=== PATIENT | male | born 1985 | race Two or more races ===

== ENCOUNTER 2021-05-01 09:26 | Inpatient (IN) | payer OTHER ==
[~2021-05-01] VITALS: Ht 200.7 cm; Wt 87.0 kg
[2021-05-01] MEDS ORDERED: DiphenhydrAMINE HCL 50 MG/ML VIAL IM ONE (10:45)
[2021-05-01] MEDS ORDERED: LORazepam 2 MG/ML VIAL IM ONE (10:45)
[2021-05-01] MEDS ORDERED: HALOPERIDOL LACTATE 5 MG/ML VIAL IM ONE (10:45)
[2021-05-01 12:28] LABS: BASOPHILS % (AUTO) 0.7 % (0.0-2.0); EOSINOPHILS % (AUTO) 1.3 % (1.0-6.0); HEMATOCRIT 39.6 % (41-53); HEMOGLOBIN 13.1 g/dL (13.5-17.5); LYMPHOCYTES # (AUTO) 0.8 K/uL (1.0-4.8); LYMPHOCYTES % (AUTO) 7.8 % (22.0-44.0); MEAN CORPUSCULAR HEMOGLOBIN 27.9 pg (26.0-34.0); MEAN CORPUSCULAR VOLUME 84 fL (80-100); MONOCYTES # (AUTO) 0.7 K/uL (0.1-1.0); NEUTROPHILS # (AUTO) 8.1 K/uL (1.8-7.7); NEUTROPHILS % (AUTO) 83.2 % (40.0-70.0); PLATELET COUNT (AUTO) 235 K/uL (150-450); RED BLOOD CELL COUNT(AUTO) 4.69 MIL/uL (4.50-5.90); RED CELL DISTRIBUTION WIDTH 14.2 % (11.5-14.5)
[2021-05-01 12:37] LABS: ANION GAP 8 mmol/L (8-16); CALCIUM, TOTAL 8.3 mg/dL (8.8-10.5); CARBON DIOXIDE 26 mmol/L (22-29); CHLORIDE 106 mmol/L (98-107); CREATININE 0.86 mg/dL (0.60-1.30); GLOMERULAR FILTR. RATE CALC > 60 mL/min (>60); GLUCOSE,RANDOM 89 mg/dL (70-110); POTASSIUM 3.6 mmol/L (3.5-5.1); SODIUM SERUM 140 mmol/L (136-145); UREA NITROGEN, BLOOD 17 mg/dL (7-18)
[2021-05-01 12:43] LABS: ALANINE AMINOTRANSFERASE 131 U/L (12-78); ALBUMIN 3.5 g/dL (3.4-5.0); ALKALINE PHOSPHATASE 63 U/L (46-116); ASPARTATE AMINOTRANSFERASE 105 U/L (15-37); BILIRUBIN,TOTAL 1.3 mg/dL (0.1-1.0); TOTAL PROTEIN, SERUM 6.7 g/dL (6.4-8.2)
[2021-05-01] MEDS ORDERED: ONDANSETRON HCL 4 MG/2 ML VIAL IVP PRN (14:00)
[2021-05-01] MEDS ORDERED: ACETAMINOPHEN 325 MG TABLET PO PRN (14:00)
[2021-05-01] MEDS ORDERED: 0.9% SODIUM CHLORIDE 10 ML SYRINGE IVP PRN (14:00)
[2021-05-01 14:48] LABS: COVID AG,FIA SOURCE NASOPHARYNGEAL
[2021-05-01 16:47] VITALS: BP 113/54
[2021-05-01] MEDS ORDERED: IBUPROFEN 400 MG TABLET PO PRN (17:00)
[2021-05-01] MEDS ORDERED: DOCUSATE SODIUM 100 MG CAPSULE PO PRN (17:00)
[2021-05-01] MEDS ORDERED: MAG HYDROX/AL HYDROX/SIMETH ES 30 ML SUSPENSION UDCUP PO PRN (17:00)
[2021-05-01] MEDS ORDERED: CloNIDine HCL 0.1 MG TABLET PO PRN (17:00)
[2021-05-01] MEDS ORDERED: ONDANSETRON HCL 4 MG TABLET PO PRN (17:00)
[2021-05-01] MEDS ORDERED: PETROLATUM,WHITE 28 GM JELLY TP PRN (17:00)
[2021-05-01] MEDS ORDERED: LOPERAMIDE HCL 2 MG CAPSULE PO PRN (17:00)
[2021-05-01] MEDS ORDERED: MAGNESIUM HYDROXIDE SUSPENSION 30 ML UDCUP PO PRN (17:00)
[2021-05-01] MEDS ORDERED: NICOTINE 14 MG/24 HOUR PATCH TD PRN (17:00)
[2021-05-01] MEDS ORDERED: GuaiFENesin/D-METHORPHAN [SUGAR-FREE] 200-20MG/10 ML SYRUP UDCUP PO PRN (17:00)
[2021-05-01] MEDS ORDERED: ALBUTEROL SULFATE HFA 90 MCG/PUFF 8 GM INHALER IH PRN (17:00)
[2021-05-01 20:56] VITALS: BP 124/70
[2021-05-02 01:16] LABS: AMPHET/METH SCREEN,URINE POSITIVE (NEGATIVE); BARBITURATE SCREEN, URINE NEGATIVE (NEGATIVE); BENZODIAZEPINES SCREEN,URINE NEGATIVE (NEGATIVE); CANNABINOID SCREEN,URINE NEGATIVE (NEGATIVE); COCAINE SCREEN,URINE NEGATIVE (NEGATIVE); METHADONE SCREEN, URINE NEGATIVE (NEGATIVE); OPIATE SCREEN,URINE NEGATIVE (NEGATIVE)
[2021-05-02 01:19] LABS: PHENCYCLIDINE SCREEN,URINE NEGATIVE (NEGATIVE)
[2021-05-02 05:08] VITALS: BP 121/76
[2021-05-02 08:00] VITALS: BP 111/67
[2021-05-02] MEDS ORDERED: TraZODone HCL 100 MG TABLET PO PRN (16:45)
[2021-05-02] MEDS: RisperiDONE 2 MG TABLET PO SCH (20:28)
[2021-05-02 20:49] VITALS: BP 116/72
[2021-05-03 05:30] VITALS: BP 113/88
[2021-05-03 07:29] VITALS: BP 122/70
[2021-05-03] MEDS: RisperiDONE 2 MG TABLET PO SCH (08:22)
[2021-05-03] MEDS: ChlorproMAZINE HCL 50 MG TABLET PO PRN ×2 (08:22→18:01)
[2021-05-03] MEDS: TraMADol HCL 50 MG TABLET PO PRN ×2 (12:52→18:05)
[2021-05-03 19:15] VITALS: BP 125/75
[2021-05-03] MEDS: RisperiDONE 4 MG TABLET PO SCH (19:43)
[2021-05-03] MEDS ORDERED: HYPROMELLOSE 0.5% 15 ML OPHTHALMIC SOLUTION OU PRN (23:00)
[2021-05-04 05:18] VITALS: BP 109/70
[2021-05-04] MEDS: RisperiDONE 2 MG TABLET PO SCH (08:01)
[2021-05-04 08:02] VITALS: BP 112/65
[2021-05-04] MEDS ORDERED: IBUPROFEN 400 MG TABLET PO PRN (17:00)
[2021-05-04 19:35] VITALS: BP 127/75
[2021-05-04] MEDS: RisperiDONE 4 MG TABLET PO SCH (20:04)
[2021-05-04] MEDS: ACETAMINOPHEN 325 MG TABLET PO PRN (20:09)
[2021-05-05 04:35] VITALS: BP 122/73
[2021-05-05 06:22] LABS: BASOPHILS % (AUTO) 0.8 % (0.0-2.0); HEMATOCRIT 37.4 % (41-53); HEMOGLOBIN 12.3 g/dL (13.5-17.5); LYMPHOCYTES # (AUTO) 1.5 K/uL (1.0-4.8); LYMPHOCYTES % (AUTO) 32.2 % (22.0-44.0); MEAN CORPUSCULAR HEMOGLOBIN 27.7 pg (26.0-34.0); MEAN CORPUSCULAR VOLUME 84 fL (80-100); MONOCYTES # (AUTO) 0.4 K/uL (0.1-1.0); MONOCYTES % (AUTO) 9.2 % (2.0-9.0); NEUTROPHILS # (AUTO) 2.5 K/uL (1.8-7.7); NEUTROPHILS % (AUTO) 52.8 % (40.0-70.0); PLATELET COUNT (AUTO) 230 K/uL (150-450); RED BLOOD CELL COUNT(AUTO) 4.45 MIL/uL (4.50-5.90); RED CELL DISTRIBUTION WIDTH 14.1 % (11.5-14.5)
[2021-05-05 06:37] LABS: ALANINE AMINOTRANSFERASE 63 U/L (12-78); ALKALINE PHOSPHATASE 58 U/L (46-116); ANION GAP 7 mmol/L (8-16); ASPARTATE AMINOTRANSFERASE 30 U/L (15-37); BILIRUBIN,TOTAL 0.4 mg/dL (0.1-1.0); CALCIUM, TOTAL 8.3 mg/dL (8.8-10.5); CARBON DIOXIDE 27 mmol/L (22-29); CHLORIDE 104 mmol/L (98-107); CREATININE 0.94 mg/dL (0.60-1.30); GLOMERULAR FILTR. RATE CALC > 60 mL/min (>60); GLUCOSE,RANDOM 96 mg/dL (70-110); POTASSIUM 3.9 mmol/L (3.5-5.1); SODIUM SERUM 138 mmol/L (136-145); TOTAL PROTEIN, SERUM 6.1 g/dL (6.4-8.2); UREA NITROGEN, BLOOD 14 mg/dL (7-18)
[2021-05-05] MEDS: RisperiDONE 2 MG TABLET PO SCH (08:37)
[2021-05-05 08:40] VITALS: BP 102/66
[2021-05-05 19:41] VITALS: BP 120/71
[2021-05-05] MEDS: ACETAMINOPHEN 325 MG TABLET PO PRN (20:05)
[2021-05-05] MEDS: RisperiDONE 4 MG TABLET PO SCH (20:05)
[2021-05-06 04:56] VITALS: BP 109/71
[2021-05-06 07:55] VITALS: BP 119/80
[2021-05-06] MEDS: RisperiDONE 2 MG TABLET PO SCH (08:50)
[2021-05-06 20:17] VITALS: BP 136/73
[2021-05-06] MEDS: RisperiDONE 4 MG TABLET PO SCH (20:24)
[2021-05-06] MEDS: ACETAMINOPHEN 325 MG TABLET PO PRN (20:26)
[2021-05-07 05:13] VITALS: BP 121/71
[2021-05-07 08:34] VITALS: BP 103/59
[2021-05-07] MEDS: RisperiDONE 2 MG TABLET PO SCH (09:23)
[2021-05-07] MEDS ORDERED: RISP4TAB73 PO (13:02)
[2021-05-07] MEDS ORDERED: RISP2TAB45 PO (13:02)
== END 2021-05-07 16:40 | DRG 885 ==
LOC: EMS 09:32 → EDBD 09:32 → 6S 15:55
PROVIDERS: ADMIT Internal Medicine; ATTEND Internal Medicine
DX: F29 Unspecified psychosis not due to a substance or known physiological condition (principal); D64.9 Anemia, unspecified; Z20.822 Contact with and (suspected) exposure to COVID-19; F15.10 Other stimulant abuse, uncomplicated
CPT/HCPCS: 73218; 80053; 80307; 85025; 99285; G0480; J1200; J1630; J2060

== ENCOUNTER 2021-05-22 16:50 | Emergency (ER) | payer OTHER ==
[~2021-05-22] VITALS: Ht 175.3 cm; Wt 88.6 kg
[~2021-05-22 16:50] MED LIST: RISP2TAB45 PO; RISP4TAB73 PO
[2021-05-22] MEDS ORDERED: PROPARACAINE HCL 0.5% 15 ML OPHTHALMIC SOLUTION OS ONE (17:00)
[2021-05-22] MEDS ORDERED: FLUORESCEIN SODIUM 1 MG STRIP ONE (17:06)
[2021-05-22] MEDS ORDERED: HYDROCODONE/ACETAMINOPHEN 5-325 MG TABLET PO ONE (18:15)
[2021-05-22 19:09] LABS: COVID AG,FIA SOURCE NASOPHARYNGEAL
[2021-05-22 20:00] VITALS: BP 132/76
== END 2021-05-22 20:40 | disposition short-term general hospital (02) ==
LOC: EMS 16:50
DX: S05.8X2A Other injuries of left eye and orbit, initial encounter (principal); H54.62 Unqualified visual loss, left eye, normal vision right eye; Z20.822 Contact with and (suspected) exposure to COVID-19; Z79.899 Other long term (current) drug therapy; Y04.0XXA Assault by unarmed brawl or fight, initial encounter; Y93.89 Activity, other specified; Y92.148 Other place in prison as the place of occurrence of the external cause; Y99.8 Other external cause status
CPT/HCPCS: 70450; 70486; 99285

== ENCOUNTER 2023-01-29 19:25 | Inpatient (IN) | payer OTHER ==
[~2023-01-29] VITALS: Ht 177.8 cm; Wt 91.0 kg
[2023-01-29 22:41] LABS: BASOPHILS % (AUTO) 0.7 % (0.0-2.0); EOSINOPHILS % (AUTO) 2.4 % (1.0-6.0); HEMATOCRIT 43.6 % (41-53); HEMOGLOBIN 14.5 g/dL (13.5-17.5); LYMPHOCYTES # (AUTO) 2.3 K/uL (1.0-4.8); LYMPHOCYTES % (AUTO) 33.3 % (22.0-44.0); MEAN CORPUSCULAR HEMOGLOBIN 27.9 pg (26.0-34.0); MEAN CORPUSCULAR HGB CONC 33.3 G/dL (31.0-37.0); MEAN CORPUSCULAR VOLUME 84 fL (80-100); MONOCYTES # (AUTO) 0.5 K/uL (0.1-1.0); MONOCYTES % (AUTO) 7.6 % (2.0-9.0); NEUTROPHILS # (AUTO) 3.9 K/uL (1.8-7.7); PLATELET COUNT (AUTO) 218 K/uL (150-450); RED CELL DISTRIBUTION WIDTH 14.5 % (11.5-14.5)
[2023-01-29 22:44] LABS: COVID AG,FIA SOURCE NASOPHARYNGEAL
[2023-01-29 22:49] LABS: ANION GAP 9 mmol/L (8-16); CALCIUM, TOTAL 8.8 mg/dL (8.8-10.5); CARBON DIOXIDE 28 mmol/L (22-29); CHLORIDE 105 mmol/L (98-107); GLOMERULAR FILTR. RATE CALC > 60 mL/min (>60); GLUCOSE,RANDOM 96 mg/dL (70-110); POTASSIUM 3.9 mmol/L (3.5-5.1); SODIUM SERUM 142 mmol/L (136-145); UREA NITROGEN, BLOOD 18 mg/dL (7-18)
[2023-01-29 22:55] LABS: ALANINE AMINOTRANSFERASE 29 U/L (12-78); ALBUMIN 4.2 g/dL (3.4-5.0); ALKALINE PHOSPHATASE 66 U/L (46-116); ASPARTATE AMINOTRANSFERASE 21 U/L (15-37); BILIRUBIN,TOTAL 1.1 mg/dL (0.1-1.0); TOTAL PROTEIN, SERUM 7.9 g/dL (6.4-8.2)
[2023-01-29] MEDS ORDERED: OLANZapine 5 MG TABLET PO ONE (23:00)
[2023-01-29] MEDS ORDERED: PERTUSS(ACELL),DIPH,TET VAC/PF 0.5 ML SYRINGE IM. ONE (23:00)
[2023-01-29 23:45] LABS: AMPHET/METH SCREEN,URINE NEGATIVE (NEGATIVE); BARBITURATE SCREEN, URINE NEGATIVE (NEGATIVE); BENZODIAZEPINES SCREEN,URINE NEGATIVE (NEGATIVE); CANNABINOID SCREEN,URINE NEGATIVE (NEGATIVE); COCAINE SCREEN,URINE NEGATIVE (NEGATIVE); METHADONE SCREEN, URINE NEGATIVE (NEGATIVE); OPIATE SCREEN,URINE NEGATIVE (NEGATIVE); PHENCYCLIDINE SCREEN,URINE NEGATIVE (NEGATIVE)
[2023-01-30] MEDS ORDERED: ACETAMINOPHEN 325 MG TABLET PO PRN (05:30)
[2023-01-30] MEDS ORDERED: ONDANSETRON HCL 4 MG/2 ML VIAL IVP PRN (05:30)
[2023-01-30] MEDS: HEPARIN SODIUM,PORCINE 5,000 UNITS/ML VIAL SQ SCH ×3 (09:12→23:06)
[2023-01-30 20:20] VITALS: BP 107/62
[2023-01-30] MEDS: ZOLPIDEM TARTRATE 5 MG TABLET PO PRN (23:06)
[2023-01-31 05:03] VITALS: BP_SYST 103; BP_SYST 116; BP_DIAS 63; BP_DIAS 78
[2023-01-31] MEDS: HEPARIN SODIUM,PORCINE 5,000 UNITS/ML VIAL SQ SCH ×2 (08:00→15:22)
[2023-01-31 08:38] VITALS: BP 120/70
[2023-01-31] MEDS: OLANZapine 5 MG RAPDIS TABLET PO SCH ×3 (12:30→20:28)
[2023-01-31 20:07] VITALS: BP 105/71
[2023-02-01 07:33] VITALS: BP 108/72
[2023-02-01] MEDS: OLANZapine 5 MG RAPDIS TABLET PO SCH ×2 (08:19→20:43)
[2023-02-01] MEDS: HEPARIN SODIUM,PORCINE 5,000 UNITS/ML VIAL SQ SCH ×4 (08:20→23:23)
[2023-02-01 16:39] VITALS: BP 110/74
[2023-02-01 19:45] VITALS: BP 116/66
[2023-02-01] MEDS: MIRTAZAPINE 15 MG TABLET PO SCH (20:43)
[2023-02-02 04:15] VITALS: BP 107/60
[2023-02-02] MEDS: OLANZapine 5 MG RAPDIS TABLET PO SCH ×2 (08:00→20:17)
[2023-02-02] MEDS: HEPARIN SODIUM,PORCINE 5,000 UNITS/ML VIAL SQ SCH ×3 (08:01→23:24)
[2023-02-02 08:17] VITALS: BP 110/64
[2023-02-02] MEDS: ZOLPIDEM TARTRATE 5 MG TABLET PO PRN (20:17)
[2023-02-02] MEDS: MIRTAZAPINE 15 MG TABLET PO SCH (20:17)
[2023-02-02 20:20] VITALS: BP 109/69
[2023-02-03 04:16] VITALS: BP 115/69
[2023-02-03 08:22] VITALS: BP 108/70
[2023-02-03] MEDS: OLANZapine 5 MG RAPDIS TABLET PO SCH ×2 (08:58→20:02)
[2023-02-03] MEDS: HEPARIN SODIUM,PORCINE 5,000 UNITS/ML VIAL SQ SCH ×2 (08:58→16:00)
[2023-02-03 16:37] VITALS: BP 111/70
[2023-02-03 19:29] VITALS: BP 101/58
[2023-02-03] MEDS: MIRTAZAPINE 15 MG TABLET PO SCH (20:02)
[2023-02-03] MEDS: ZOLPIDEM TARTRATE 5 MG TABLET PO PRN (21:31)
[2023-02-04 04:32] VITALS: BP 133/47
[2023-02-04] MEDS: HEPARIN SODIUM,PORCINE 5,000 UNITS/ML VIAL SQ SCH ×4 (08:15→23:18)
[2023-02-04] MEDS: OLANZapine 5 MG RAPDIS TABLET PO SCH ×2 (08:15→20:07)
[2023-02-04 15:28] VITALS: BP 119/74
[2023-02-04] MEDS: ZOLPIDEM TARTRATE 5 MG TABLET PO PRN (20:07)
[2023-02-04] MEDS: MIRTAZAPINE 15 MG TABLET PO SCH (20:08)
[2023-02-04 21:03] VITALS: BP 119/72
[2023-02-05 05:27] VITALS: BP 105/58
[2023-02-05] MEDS: HEPARIN SODIUM,PORCINE 5,000 UNITS/ML VIAL SQ SCH ×2 (08:19→16:00)
[2023-02-05] MEDS: OLANZapine 5 MG RAPDIS TABLET PO SCH (08:19)
[2023-02-05 08:46] VITALS: BP 108/64
[2023-02-05] MEDS ORDERED: MIRT-89 PO (12:02)
[2023-02-05] MEDS ORDERED: OLAN5TAB94 PO (12:02)
[2023-02-05 16:58] VITALS: BP 112/73
== END 2023-02-05 19:31 | DRG 885 ==
LOC: EMS 19:27 → AHU 01-30 07:11 → 6S 01-30 19:40
PROVIDERS: ADMIT Internal Medicine; ATTEND Internal Medicine
DX: F29 Unspecified psychosis not due to a substance or known physiological condition (principal); R45.851 Suicidal ideations; Z20.822 Contact with and (suspected) exposure to COVID-19; S61.512A Laceration without foreign body of left wrist, initial encounter; S51.012A Laceration without foreign body of left elbow, initial encounter; X78.8XXA Intentional self-harm by other sharp object, initial encounter; X78.1XXA Intentional self-harm by knife, initial encounter; Z79.899 Other long term (current) drug therapy; Z91.51 Personal history of suicidal behavior; Y93.89 Activity, other specified; Y92.89 Other specified places as the place of occurrence of the external cause; Y99.8 Other external cause status
CPT/HCPCS: 80053; 80307; 85025; 90715; 99285; G0480; J1644

== ENCOUNTER 2023-03-21 12:28 | Inpatient (IN) | payer OTHER ==
[~2023-03-21] VITALS: Ht 177.8 cm; Wt 94.1 kg
[~2023-03-21 12:28] MED LIST changes: +MIRT-89 PO; +OLAN5TAB94 PO; -RISP2TAB45 PO; -RISP4TAB73 PO
[2023-03-21] MEDS ORDERED: OLAN5TAB52 PO (13:57)
[2023-03-21 15:46] LABS: COVID AG,FIA SOURCE NASOPHARYNGEAL
[2023-03-21 15:53] LABS: APPEARANCE,URINE CLEAR (CLEAR); BILIRUBIN,URINE NEGATIVE (NEGATIVE); GLUCOSE, URINE (UA) NEGATIVE (NEGATIVE); KETONES,URINE NEGATIVE (NEGATIVE); LEUKOCYTE ESTERASE ,URINE NEGATIVE (NEGATIVE); NITRATE,URINE NEGATIVE (NEGATIVE); OCCULT BLOOD,URINE NEGATIVE (NEGATIVE); PROTEIN,URINE NEGATIVE (NEGATIVE); SPECIFIC GRAVITIY, URINE 1.014 (1.003-1.030); UROBILINOGEN,URINE <=1.0 mg/dL (<=1.0)
[2023-03-21 15:58] LABS: AMPHET/METH SCREEN,URINE NEGATIVE (NEGATIVE); BARBITURATE SCREEN, URINE NEGATIVE (NEGATIVE); BENZODIAZEPINES SCREEN,URINE NEGATIVE (NEGATIVE); CANNABINOID SCREEN,URINE NEGATIVE (NEGATIVE); COCAINE SCREEN,URINE NEGATIVE (NEGATIVE); METHADONE SCREEN, URINE NEGATIVE (NEGATIVE); OPIATE SCREEN,URINE NEGATIVE (NEGATIVE); PHENCYCLIDINE SCREEN,URINE NEGATIVE (NEGATIVE)
[2023-03-21] MEDS ORDERED: ZOLPIDEM TARTRATE 5 MG TABLET PO PRN (17:15)
[2023-03-21] MEDS ORDERED: MAGNESIUM HYDROXIDE SUSPENSION 30 ML UDCUP PO PRN (17:15)
[2023-03-21] MEDS ORDERED: ACETAMINOPHEN 325 MG TABLET PO PRN (17:15)
[2023-03-21 17:51] LABS: BASOPHILS % (AUTO) 0.4 % (0.0-2.0); EOSINOPHILS % (AUTO) 2.5 % (1.0-6.0); HEMATOCRIT 39.6 % (41-53); HEMOGLOBIN 12.9 g/dL (13.5-17.5); LYMPHOCYTES # (AUTO) 1.9 K/uL (1.0-4.8); LYMPHOCYTES % (AUTO) 30.3 % (22.0-44.0); MEAN CORPUSCULAR HEMOGLOBIN 27.8 pg (26.0-34.0); MEAN CORPUSCULAR HGB CONC 32.5 G/dL (31.0-37.0); MEAN CORPUSCULAR VOLUME 86 fL (80-100); MONOCYTES # (AUTO) 0.4 K/uL (0.1-1.0); MONOCYTES % (AUTO) 6.4 % (2.0-9.0); NEUTROPHILS # (AUTO) 3.7 K/uL (1.8-7.7); NEUTROPHILS % (AUTO) 60.4 % (40.0-70.0); PLATELET COUNT (AUTO) 203 K/uL (150-450); RED BLOOD CELL COUNT(AUTO) 4.63 MIL/uL (4.50-5.90); RED CELL DISTRIBUTION WIDTH 14.8 % (11.5-14.5)
[2023-03-21 18:02] LABS: ANION GAP 9 mmol/L (8-16); CALCIUM, TOTAL 9.1 mg/dL (8.8-10.5); CARBON DIOXIDE 27 mmol/L (22-29); CHLORIDE 106 mmol/L (98-107); CREATININE 0.89 mg/dL (0.60-1.30); GLOMERULAR FILTR. RATE CALC > 60 mL/min (>60); GLUCOSE,RANDOM 108 mg/dL (70-110); POTASSIUM 4.5 mmol/L (3.5-5.1); SODIUM SERUM 142 mmol/L (136-145); UREA NITROGEN, BLOOD 14 mg/dL (7-18)
[2023-03-21 18:08] LABS: ALANINE AMINOTRANSFERASE 19 U/L (12-78); ALBUMIN 4.1 g/dL (3.4-5.0); ALKALINE PHOSPHATASE 51 U/L (46-116); ASPARTATE AMINOTRANSFERASE 14 U/L (15-37); BILIRUBIN,TOTAL 0.9 mg/dL (0.1-1.0); TOTAL PROTEIN, SERUM 7.4 g/dL (6.4-8.2)
[2023-03-21 21:00] VITALS: BP 112/64
[2023-03-22 05:54] VITALS: BP 110/67
[2023-03-22 08:06] VITALS: BP 122/62
[2023-03-22] MEDS: FAMOTIDINE 20 MG TABLET PO SCH ×2 (08:27→08:31)
[2023-03-22] MEDS: OLANZapine 10 MG RAPDIS TABLET PO SCH (13:16)
[2023-03-22 16:02] VITALS: BP 113/71
[2023-03-22] MEDS: MIRTAZAPINE 15 MG TABLET PO SCH (22:02)
[2023-03-23 01:10] VITALS: BP 113/68
[2023-03-23 07:26] VITALS: BP 123/73
[2023-03-23] MEDS: FAMOTIDINE 20 MG TABLET PO SCH (08:59)
[2023-03-23 16:25] VITALS: BP 113/83
[2023-03-23 19:10] VITALS: BP 122/66
[2023-03-23] MEDS: MIRTAZAPINE 15 MG TABLET PO SCH (19:58)
[2023-03-23] MEDS: OLANZapine 10 MG RAPDIS TABLET PO SCH (19:58)
[2023-03-24 02:30] VITALS: BP 87/55
[2023-03-24 02:45] VITALS: BP 95/57
[2023-03-24 04:05] VITALS: BP 106/56
[2023-03-24 07:16] LABS: GLUCOMETER DEV NAME(LOC) 6N.1; GLUCOSE,POINT OF CARE 114 MG/DL (70-110)
[2023-03-24 07:40] VITALS: BP 101/62
[2023-03-24] MEDS: FAMOTIDINE 20 MG TABLET PO SCH (07:56)
[2023-03-24] MEDS ORDERED: FAMO20 PO (12:41)
[2023-03-24] MEDS ORDERED: MAGN-169 PO (12:42)
[2023-03-24] MEDS ORDERED: ACET-2247 PO (12:42)
[2023-03-24] MEDS ORDERED: OLAN10TA74 PO (12:43)
[2023-03-24 15:27] VITALS: BP 120/63
== END 2023-03-24 18:56 | DRG 885 ==
LOC: EMS 12:28 → 6S 20:55
PROVIDERS: ADMIT Internal Medicine; ATTEND Internal Medicine
DX: F25.1 Schizoaffective disorder, depressive type (principal); R45.851 Suicidal ideations; F33.2 Major depressive disorder, recurrent severe without psychotic features; Z91.51 Personal history of suicidal behavior; D64.9 Anemia, unspecified; Z20.822 Contact with and (suspected) exposure to COVID-19
CPT/HCPCS: 70450; 80053; 80307; 81003; 82962; 85025; 99285; G0480